=== PATIENT | female | born 1935 | race Hispanic/Latino ===

== ENCOUNTER 2018-06-24 09:57 | Outpatient (CLI) | payer MEDICARE ==
--- NOTE | 2018-06-24 10:51 | Mammography Report ---
BILATERAL DIGITAL SCREENING MAMMOGRAM WITH CAD: 06/24/18 09:57:00 CLINICAL: Routine screening.Breast cancer survivor status post left mastectomy . COMPARISON:02/27/17 FINDINGS: Heterogeneously dense breasts. Benign left upper outer postsurgical scar with central fat necrosis and a 1 cm benign calcification. Scattered bilateral benign calcifications. No mass, suspicious architectural distortion or suspicious calcifications. IMPRESSION: No mammographic evidence of malignancy. BI-RADS CATEGORY: 2 -- Benign RECOMMENDATION: Routine mammographic screening in one year. COMMENT: Patient follow-up letters are generated via our [employer] application.
== END 2018-06-24 09:58 | disposition home or self-care (01) ==
LOC: SPVWC 09:57
PROVIDERS: ATTEND Surgery
DX: Z12.31 Encounter for screening mammogram for malignant neoplasm of breast (principal)
CPT/HCPCS: 77067

== ENCOUNTER 2020-06-08 09:29 | Outpatient (CLI) | payer MEDICARE ==
--- NOTE | 2020-06-08 10:43 | Mammography Report ---
DIGITAL SCREENING MAMMOGRAM WITH CAD, 06/08/2020 INDICATION: Routine screening mammography. TECHNIQUE: Digital bilateral 2D mammography was obtained in the craniocaudal and mediolateral obliq ue projections. This examination was interpreted with the benefit of Computer-Aided Detection analysi s. COMPARISON: 06/24/2018. FINDINGS: Breast Density: There are scattered areas of fibroglandular density. There is no evidence of dominant mass, suspicious calcifications or architectural distortion in the l eft breast. Surgical change left breast. Benign bilateral calcification. New 1 cm spiculated mass upp er outer quadrant right breast anterior depth approximately 4 cm from the nipple with possible satell ite nodule. Spot compression views and ultrasound recommended for further evaluation. IMPRESSION: Follow up recommendation: Special View: Spot Category 0: Incomplete. Needs additional imaging evaluation and/or prior mammograms for comparison. A "normal" or negative report should not discourage follow up or biopsy of a clinically significant f inding. A written summary of these findings will be mailed to the patient. The patient will be entered into a mammography reporting system which will generate a reminder letter for the patient's next appointmen t at the appropriate interval. The [employer] recommends yearly mammograms starting at age 40 and continuing as l roula as a woman is in good health. Breast MRI is recommended for women with an approximate 20-25% or greater lifetime risk of breast cancer, including women with a strong family history of breast or ova [place] cancer or who have been treated for Hodgkin's disease. Signer Name: Juan A Powers MD Signed: 06/08/2020 10:39 AM Workstation Name: [id number]
== END 2020-06-08 09:30 | disposition home or self-care (01) ==
LOC: SPVWC 09:29
PROVIDERS: ATTEND Surgery
DX: Z12.31 Encounter for screening mammogram for malignant neoplasm of breast (principal)
CPT/HCPCS: 77067

== ENCOUNTER 2020-07-05 10:32 | Outpatient (CLI) | payer MEDICARE ==
--- NOTE | 2020-07-05 13:38 | Ultrasound Report ---
RIGHT DIGITAL DIAGNOSTIC MAMMOGRAM WITH CAD WITHOUT TOMOSYNTHESIS 07/05/2020 RIGHT LIMITED BREAST ULTRASOUND INDICATION: Abnormal screening mammogram TECHNIQUE: Digital right mammographic imaging was performed. Spot compression views were obtained. L imited ultrasound was performed. This examination was interpreted with the benefit of Computer-Aided Detection (CAD) analysis. COMPARISON: Screening mammogram 06/08/2020 Breast Density: There are scattered areas of fibroglandular density. FINDINGS: MAMMOGRAPHIC FINDINGS: The spiculated mass in the anterior aspect of the right breast at approximatel y 9:00 persists with spot compression. Possible mild adjacent nodularity persists. ULTRASOUND FINDINGS: Targeted ultrasound evaluation was performed of the area of interest. In the are a of concern at 9:00 on mammogram, an irregular shadowing mass is seen. This is rather elongated lolita uring 19 mm in total size of this may include an adjacent satellite nodule as well. The main portion of this mass measures approximately 11 mm and the possible satellite nodule measures approximate 5 mm . No vascularity is seen directly in the mass. Moderate shadowing is seen. Borders are ill-defined an d irregular. IMPRESSION: Persistent spiculated mass and possible satellite nodule as described above on ultrasound and mammography are highly suggestive of malignancy Follow up recommendation: Ultrasound-guided biopsy right breast BI-RADS Category 5: Highly Suggestive of Malignancy. A "normal" or negative report should not discourage follow up or biopsy of a clinically significant f inding. A written summary of these findings will be mailed to the patient. The patient will be entered into a mammography reporting system which will generate a reminder letter for the patient's next appointmen t at the appropriate interval. According to the [employer], yearly mammograms are recommended starting at age 40 and continuing as long as a woman is in good health. Breast MRI is recommended for women with an mark roximately 20-25% or greater lifetime risk of breast cancer, including women with a strong family his tory of breast or ovarian cancer and women who have been treated for Hodgkin's disease. Signer Name: Josh Mcqueen MD Signed: 07/05/2020 1:34 PM Workstation Name: [id number]
== END 2020-07-05 10:33 | disposition home or self-care (01) ==
LOC: SPVWC 10:32
PROVIDERS: ATTEND Surgery
DX: N63.41 Unspecified lump in right breast, subareolar (principal)

== ENCOUNTER 2020-07-20 10:01 | Outpatient (CLI) | payer MEDICARE ==
--- NOTE | 2020-07-20 12:54 | Ultrasound Report ---
ULTRASOUND-GUIDED CORE NEEDLE BIOPSY Right BREAST WITH CLIP PLACEMENT INDICATION: Right breast mass at the 9:00 position COMPARISON: 07/05/2020. FINDINGS: Informed consent was obtained. The mass in the right breast at the 9:00 position, 1 cm from the nippl e, identified with ultrasound. The overlying skin was cleansed with Betadine and local anesthesia was obtained with a 1% lidocaine solution. Under ultrasound guidance a 14-gauge spring loaded core biops y needle was advanced to the lesion. A total of 5 core samples were obtained. A U-shaped biopsy marke r was placed to brian the site of the biopsy. Specimen samples were placed in formalin and sent to [facility] for analysis. Patient tolerated the procedure well and no immediate complications were identified. A post procedure mammogram demonstrates accurate placement of the biopsy marker. IMPRESSION: Technically successful ultrasound guided biopsy of right breast mass at the 9:00 position with accura te placement of a U-shaped biopsy marker. An addendum will be added to this report at a later date with the pathology results. Signer Name: Juan Pierson MD Signed: 07/20/2020 12:50 PM Workstation Name: [id number]
--- NOTE | 2020-07-20 13:12 | Mammography Report ---
RIGHT DIAGNOSTIC MAMMOGRAM INDICATION: Right breast mass at the 9:00 position. COMPARISON: 07/05/2020. FINDINGS: Right CC and LM projections were obtained. These demonstrate a U-shaped biopsy marker in th e previously noted right 9:00 breast mass. IMPRESSION: Mammographic images documenting accurate location of a U-shaped biopsy marker at site of previously n oted right breast 9:00 mass. BI-RADS Category 4: Suspicious for Malignancy. Signer Name: Juan Pierson MD Signed: 07/20/2020 1:08 PM Workstation Name: [id number]
== END 2020-07-20 10:02 | disposition home or self-care (01) ==
LOC: SPVWC 10:01
PROVIDERS: ATTEND Surgery
DX: N63.11 Unspecified lump in the right breast, upper outer quadrant (principal); C50.411 Malignant neoplasm of upper-outer quadrant of right female breast
CPT/HCPCS: 88305; 88341; 88342

== ENCOUNTER 2020-08-23 09:26 | Outpatient (CLI) | payer MEDICARE ==
--- NOTE | 2020-08-24 09:21 | Magnetic Resonance Report ---
Bilateral breast MR without and with contrast. History: Recently diagnosed right breast malignancy, history of left breast cancer status post treatm ent. Comparison: 06/08/2020, 07/05/2020, 07/20/2020, 06/24/2018. Technique: Multiplanar multisequence MR images of the breast were obtained before and after the intra venous administration of intravenous contrast. Post processing analysis and review was performed on a separate computer workstation. Findings: Breast composition is scattered fibroglandular. There is mild background parenchymal enhancement bila terally. RIGHT BREAST: Located within the right anterior breast at the 9:00 position is a lobulated enhancing 2.3 x 1 x 1.5 cm mass. 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 A biopsy marker is located centrally within this mass. There is no colleen dence of involvement in the overlying skin or nipple. There is intrinsic bright T1 signal in the suba reolar region which likely represents proteinaceous debris/blood. No additional suspicious findings w ithin the right breast. LEFT BREAST: Diffuse skin thickening throughout the left breast is noted, unchanged from prior mammog collins. This is likely the related to posttreatment changes in this patient with history of left breast cancer. No enhancing mass, dominant focus, or other abnormal enhancement within the left breast. No abnormal axillary or internal mammary lymph nodes. Marked cardiomegaly. Impression: Known biopsy-proven malignancy in the right anterior breast at the 9:00 position measures up to 2.3 c m. No evidence of overlying skin or nipple involvement. No additional suspicious findings within eith er breast. Marked cardiomegaly BIRADS 6: Known biopsy proven malignancy. A normal MRI does not exclude the presence of some forms of breast malignancy as literature reports s uggest that some forms of ductal carcinoma in situ or lobular carcinoma, particularly, may not be det ected on MRI. The sensitivity and specificity of MRI for cancers under 5 mm may be reduced. MRI does not replace the recommendation for annual conventional mammographic evaluation and should be used as an adjunct to mammography and physical examination as necessary. Signer Name: Juan Pierson MD Signed: 08/24/2020 9:17 AM Workstation Name: [id number]
== END 2020-08-23 09:27 | disposition home or self-care (01) ==
LOC: SPVIMAG 09:26
PROVIDERS: ATTEND Surgery
DX: C50.411 Malignant neoplasm of upper-outer quadrant of right female breast (principal); N63.41 Unspecified lump in right breast, subareolar; R23.4 Changes in skin texture
CPT/HCPCS: A9577; C8908; 77049

== ENCOUNTER 2020-09-14 06:38 | Day surgery (SDC) | payer MEDICARE ==
[~2020-09-14 06:38] MED LIST: ceFAZolin/Water 2 GM/20 ML 2 GM/20 ML SYRINGE IV NR
[2020-09-14] MEDS ORDERED: LIDOCAINE (1%) 10 MG/1 ML VIAL 20 ML MDV ONE (07:40)
[2020-09-14] MEDS ORDERED: HYDROmorphone 1 MG/1 ML INJ IV PRN ×2 (08:44)
[2020-09-14] MEDS ORDERED: MAGNESIUM OXIDE 400 MG TAB PO ONE (08:44)
[2020-09-14] MEDS ORDERED: fentaNYL 100 MCG/2 ML INJ IV ONE (08:44)
[2020-09-14] MEDS ORDERED: ACETAMINOPHEN 325 MG TAB PO ONE (08:44)
[2020-09-14] MEDS ORDERED: ONDANSETRON 4 MG/2 ML INJ IV PRN (08:44)
--- NOTE | 2020-09-14 08:45 | Anesthesia Day of Surgery ---
Anesthesia Day of Surgery - Day of Surgery Patient Examined: Yes Patient H&P Reviewed: Yes Patient is NPO: Yes
--- NOTE | 2020-09-14 08:48 | Anesthesia Consultation ---
Anesthesia Consult and Med Hx Date of service: 09/14/20 - Airway Anesthetic Teeth Evaluation: Caps ROM Head & Neck: Adequate Mental/Hyoid Distance: Adequate Mallampati Class: Class III Intubation Access Assessment: Probably Good - Pre-Operative Health Status ASA Pre-Surgery Classification: ASA3 Proposed Anesthetic Plan: General Nerve Block: ES/PECS - Cardiovascular System Hx Hypertension: Yes Hx Cardia Arrhythmia: Yes (+Cardiac Clearance) - Central Nervous System Hx Back Pain: Yes Hx Psychiatric Problems: No - Endocrine Hx Liver Disease: No Hx Thyroid Disease: No - Other Systems Hx Cancer: Yes
[2020-09-14] MEDS ORDERED: BUPIVACAINE-EPINEPHRINE/PF 0.25%-1:200,000 (10 ML) VIAL INFILTRATI ONE (08:53)
[2020-09-14] MEDS ORDERED: dexAMETHasone 4 MG/ML VIAL ONE (08:54)
[2020-09-14] MEDS ORDERED: BUPIVACAINE-EPINEPHRINE/PF 0.5%-1:200,000 (10 ML) VIAL INFILTRATI ONE (08:55)
[2020-09-14] MEDS ORDERED: LACTATED RINGERS 1,000 ML IV SCH (09:00)
[2020-09-14] MEDS ORDERED: CELECOXIB 200 MG CAP PO NR (09:00)
[2020-09-14] MEDS ORDERED: MIDAZOLAM 2 MG/2 ML INJ IV NR (09:00)
[2020-09-14] MEDS ORDERED: METHYLENE BLUE 50 MG/10 ML AMP ONE (09:19)
[2020-09-14] MEDS ORDERED: SODIUM CHLORIDE P/F VIAL 10 ML 10 ML ONE (09:20)
[2020-09-14] MEDS ORDERED: propofoL 200 MG/20 ML VIAL IV ONE (10:55)
--- NOTE | 2020-09-14 11:07 | Mammography Report ---
RIGHT BREAST NEEDLE LOCALIZATION USING X-RAY GUIDANCE The procedure was explained to the patient and informed consent obtained. PROCEDURE: Using 5 mL of 1% buffered lidocaine, a 25 gauge needle and x-ray guidance, the right suzanne st lesion containing a U-Clip at approximately 9:00 was localized with standard needle/wire technique . There were no immediate complications. INTERPRETATION: 2 images made during the procedure demonstrate the needle to be properly positioned. IMPRESSION: Successful right breast lesion localization as described above. Thank you for allowing us to participate in the care of your patient. Signer Name: Zach Herring Jr, MD Signed: 09/14/2020 11:02 AM Workstation Name: [id number]
[2020-09-14] MEDS ORDERED: WATER FOR IRRIG STERILE 1,500 ML BOTTLE IR ONE (11:29)
[2020-09-14] MEDS ORDERED: METHYLENE BLUE 50 MG/10 ML AMP IRRIGATION ONE (11:29)
[2020-09-14] MEDS ORDERED: fentaNYL 100 MCG/2 ML INJ ONE (11:29)
[2020-09-14] MEDS ORDERED: NEOMY 40 MG/POLYMYXIN B 200,000 UNITS/ML (GU) AMPULE IR ONE ×2 (12:41→12:46)
[2020-09-14] MEDS ORDERED: SODIUM CHLORIDE 0.9% IRR 1,500 ML BOTTLE IR ONE (12:46)
[2020-09-14] MEDS ORDERED: dexAMETHasone 20 MG/5 ML VIAL ONE (12:58)
[2020-09-14] MEDS ORDERED: ONDANSETRON 4 MG/2 ML INJ ONE (12:58)
[2020-09-14] MEDS ORDERED: GLYCOPYRROLATE 0.4 MG/2 ML INJ ONE (13:00)
[2020-09-14] MEDS ORDERED: PHENYLEPHRINE 10 MG/1 ML INJ SDV ONE (13:10)
[2020-09-14] MEDS ORDERED: PHENYLEPHRINE/NS 1,000 MCG/10 ML SYRINGE (OR USE) IV ONE ×2 (13:10)
--- NOTE | 2020-09-14 14:01 | Short Stay Summary ---
Short Stay Documentation Date of service: 09/14/20 - History H&P: obtained from office - Allergies and Medications Current Medications: Allergies No Known Allergies Allergy (Unverified 09/07/20 16:57) Home Medications Medication Instructions Recorded Confirmed Last Taken Type ALPRAZolam [Xanax TAB] 0.5 mg PO DAILY PRN 09/12/20 09/12/20 09/13/20 History Anastrozole [Arimidex] 1 mg PO DAILY 09/12/20 09/12/20 09/13/20 History Ascorbic Acid [Vitamin C] 500 mg PO DAILY 09/12/20 09/12/20 09/13/20 History Cholecalciferol (Vitamin D3) 5,000 unit PO QWEEK 09/12/20 09/12/20 09/13/20 History [Vitamin D3] Cyanocobalamin (Vitamin B-12) 500 mg PO DAILY 09/12/20 09/12/20 09/13/20 History [Vitamin B12] Losartan [Cozaar] 100 mg PO QDAY 09/12/20 09/14/20 09/13/20 History RX: Magnesium 25 mg PO DAILY 09/12/20 09/12/20 09/13/20 History Warfarin [Coumadin] 2.5 mg PO QDAY 09/12/20 09/14/20 5 Days Ago History ~09/09/20 Warfarin [Coumadin] 5 mg PO QDAY 09/12/20 09/14/20 5 Days Ago History ~09/09/20 amLODIPine [Norvasc] 10 mg PO DAILY 09/12/20 09/12/20 09/14/20 05:30 History atenoloL [Tenormin] 25 mg PO BID 09/12/20 09/12/20 09/14/20 05:30 History oxyCODONE /ACETAMINOPHEN [Percocet 1 tab PO Q6HR PRN #20 tablet 09/14/20 Unknown Rx 5/325] Active Medications Celecoxib (Celebrex) 200 mg PO PREOP NR Stop: 09/14/20 23:59 Last Admin: 09/14/20 09:10 Dose: 200 mg Documented by: Hydromorphone HCl (Dilaudid) 0.25 mg IV Q10MIN PRN PRN Reason: Pain, Moderate (4-6) Hydromorphone HCl (Dilaudid) 0.5 mg IV Q10MIN PRN PRN Reason: Pain , Severe (7-10) Cefazolin Sodium (Ancef/Sterile Water 2 Gm/20 Ml) 2 gm in 20 mls @ 80 mls/hr IV PREOP NR; Protocol Stop: 09/14/20 21:00 Lactated Ringer's (Lactated Ringers) 1,000 mls @ 75 mls/hr IV DIRECT DAYANA Last Admin: 09/14/20 09:00 Dose: 75 mls/hr Documented by: Midazolam HCl (Versed) 2 mg IV PREOP NR Stop: 09/14/20 23:59 Last Admin: 09/14/20 09:26 Dose: 2 mg Documented by: Ondansetron HCl (Zofran) 4 mg IV ONCE PRN PRN Reason: Nausea And Vomiting - Brief post op/procedure progress note Date of procedure: 09/14/20 Pre-op diagnosis: Right breast cancer upper outer quadrant Post-op diagnosis: same Procedure: Right needle localization partial mastectomy with SLNB Anesthesia: GETA Findings: Right breast wire, clip and mass present; x2 SLNs Surgeon: YAMIL CARREON Estimated blood loss: minimal Pathology: list Specimen disposition: to lab Condition: stable - Disposition Condition at discharge: Good Disposition: DC-01 TO HOME OR SELFCARE Short Stay Discharge Plan Activity: other (no heavy lifting) Diet: regular Wound: keep clean and dry (wear breast binder; may shower in 48 hours; resume coumadin on Saturday; no baths) Follow up with: YAMIL CARREON MD [Staff Physician] - 7 Days Prescriptions: oxyCODONE /ACETAMINOPHEN [Percocet 5/325] 1 tab PO Q6HR PRN #20 tablet PRN Reason: Pain
--- NOTE | 2020-09-14 14:09 | Operative Report ---
Operative Report Operative Report: Operative Report: September 14, 2020 Preoperative diagnosis: Right breast cancer of the upper outer quadrant Postoperative diagnosis: Same Procedure: Right breast needle localization partial mastectomy of the upper outer quadrant with SLNB Surgeon: Linda Torres MD Supervisor [employer]: Arcenio Pena MD Anesthesia: General Findings: Right wire, mass and clip present within radiograph specimen; x2 SLNs Complications: None EBL: Less than 50 cc Disposition: PACU in good condition Indications for operative procedure: This is an 85 year old lady with newly diagnosed right breast cancer of the upper outer quadrant, Stage II [id number] ER/MT positive (9:00 position 2 cm FN). Patient wished to proceed with breast conservation. Radiology to place wire at location of cancer. She understands the role of adjuvant radiation therapy and Oncotype DX will be obtained by medical oncology. Patient understand if margins were positive additional surgery will be indicated at a second time. She wished to proceed with the above procedure. Procedure in detail: The patient was taken to radiology for wire placement for localization known area of cancer. Anesthesia placed right pectoral block. Patient was then taken to the operating room. Gen. anesthesia was administered. The right nipple was injected with radioisotope and 1 cc of methylene blue dye with saline. Right breast and axilla were prepped and draped in the normal sterile operative fashion. The wire was identified. Timeout was performed. Gamma probe was inserted into the axilla. The area of hot spot was identified. A right axillary incision was made with a 15 blade knife with dissection taken down to the subcutaneous tissues. The axillary fascia was opened with the Bovie cautery. 2 SLNs were identified and dissected free. All remaining counts were less than 10% of the highest count. No palpable axillary lymph nodes present within the axilla. Lymph nodes were sent to pathology for permanent processing. Hemostasis was obtained in the right axillary cavity. Axillary cavity was appropriately irrigated and suctioned. Hemostasis was noted. Axillary fascia was approximated and closed using interrupted 3-0 Vicryl and the skin brought together and closed using a running 4-0 Monocryl followed by skin affix. Attention was then taken towards the right breast. Ultrasound was used as well to brian the area of incision, known cancer at 9:00 position 2-5 cm FN with closest area of concer at 9:00 position 1-2 cm FN. A periareolar breast incision around 9:00 position was made with a 15 blade knife and dissection taken down to subcutaneous tissues. First began raising of the medial flap with dissection taken medially past the area of known malignancy at the 9:00 position 1-2 cm FN, area noted to be close anteriorly to the nipple; dissection medially then taken down to the pectoralis muscle, followed by raising of the lateral flap with removal of wire denoting second area of malignancy more laterally followed by raising of the superior flap and inferior flap with all flaps taken past the area of known malignancy and then posteriorly down to the pectoralis muscle. The breast area of concern was appropriately removed posteriorly from the pectoralis muscle with the aid of the Bovie cautery. The wire was not encountered. Specimen was marked and then sent to pathology and radiology; radiograph specimen with wire, mass and clip present. Breast cavity was irrigated and hemostasis was obtained. Ultrasound used as well with no additional suspicious areas of concern. Then proceeded with complex closure. The posterior deep breast tissues were then mobilized to cover the area of the defect of at least 5-7 cm. The posterior deep breast tissues were approximated and closed using interrupted 3-0 Vicryl. The subcutaneous tissues were then approximated and closed using interrupted 3-0 Vicryl followed by closing of the skin with a running 4-0 Monocryl and dermabond. The patient tolerated surgery very well and she was awaken from anesthesia without any complication and transported to PACU in good condition.
--- NOTE | 2020-09-14 14:12 | Mammography Report ---
Right breast surgical specimen INDICATION: Right breast cancer. COMPARISON: 07/20/2020. FINDINGS/IMPRESSION: Single specimen radiograph demonstrates a small spiculated mass and associated U-shaped biopsy marker located centrally within the specimen. Signer Name: Juan Pierson MD Signed: 09/14/2020 2:08 PM Workstation Name: [id number]
[2020-09-14] MEDS ORDERED: NITROGLYCERIN 2% OINT 1 GM TP NR (14:14)
--- NOTE | 2020-09-14 17:56 | Post Anesthesia Evaluation ---
- Post Anesthesia Evaluation Patient Participated: Yes Airway Patent: Yes Stable Respiratory Function: Yes Nausea/Vomiting: No Temp > 96.8F: Yes Pain Manageable: Yes Adequeate Hydration: Yes Anesthesia Complications: Yes Block Receding Appropriately: Yes Patient on Ventilator: No
[2020-09-14 20:52] VITALS: BP 142/78
== END 2020-09-14 06:39 | disposition home or self-care (01) ==
LOC: OR 06:38
PROVIDERS: ATTEND Surgery
DX: C50.411 Malignant neoplasm of upper-outer quadrant of right female breast (principal); Z20.828 Contact with and (suspected) exposure to other viral communicable diseases; I42.9 Cardiomyopathy, unspecified; I48.91 Unspecified atrial fibrillation; I10 Essential (primary) hypertension; M19.90 Unspecified osteoarthritis, unspecified site; Z98.890 Other specified postprocedural states; Z90.49 Acquired absence of other specified parts of digestive tract; Z79.899 Other long term (current) drug therapy; Z79.01 Long term (current) use of anticoagulants
CPT/HCPCS: 19281; 19301; 38525; 38792; 64450; 76098; 76942; 78800; 88307; 88333; A9541; J0690; J1100; J1170; J2250; J2370; J2405; J2704; J3010; J7120; Q9968; U0003

== ENCOUNTER 2021-11-28 13:36 | Outpatient (CLI) | payer MEDICARE ==
--- NOTE | 2021-11-30 16:06 | Mammography Report ---
DIGITAL SCREENING MAMMOGRAM WITH CAD, 11/28/2021 CLINICAL INFORMATION / INDICATION: Routine screening mammography. SCREENING MAMMO UNILATERAL LEFT Z12 .31 TECHNIQUE: Digital left 2D mammography was obtained in the craniocaudal and mediolateral oblique pro jections. This examination was interpreted with the benefit of Computer-Aided Detection analysis. COMPARISON: 06/24/2018 through 06/08/2020. FINDINGS: Breast Density: There are scattered areas of fibroglandular density. No dominant mass, suspicious calcifications, or new architectural distortion in the left breast. Left breast scar is stable. There are benign calcifications, including breast arterial calcifications . No new abnormality is seen. IMPRESSION: No mammographic evidence of malignancy. Follow up recommendation: Routine yearly BI-RADS Category 2: BENIGN. A "normal" or negative report should not discourage follow up or biopsy of a clinically significant f inding. A written summary of these findings will be mailed to the patient. The patient will be entered into a mammography reporting system which will generate a reminder letter for the patient's next appointmen t at the appropriate interval. The [employer] recommends yearly mammograms starting at age 40 and continuing as l roula as a woman is in good health. Breast MRI is recommended for women with an approximate 20-25% or greater lifetime risk of breast cancer, including women with a strong family history of breast or ova [place] cancer or who have been treated for Hodgkin's disease. Signer Name: Nelson Mejia MD Signed: 11/30/2021 4:01 PM Workstation Name: [id number]
== END 2021-11-28 13:37 | disposition home or self-care (01) ==
LOC: MAMMO 13:36
PROVIDERS: ATTEND Internal Medicine Hematology & Oncology
DX: Z12.31 Encounter for screening mammogram for malignant neoplasm of breast (principal); N64.89 Other specified disorders of breast